=== PATIENT | male | born 1980 | race Caucasian/White ===

== ENCOUNTER 2016-09-26 01:50 | Emergency (ER) | payer MEDICAID ==
--- NOTE | 2016-09-26 02:25 | ED ---
General Adult HPI - General Chief complaint: Extremity Injury, Lower Stated complaint: Right Leg Injury Time Seen by Provider: 09/26/16 02:00 Source: patient, family, RN notes reviewed Mode of arrival: ambulatory Limitations: no limitations - History of Present Illness Initial comments: 36-year-old male presents to the emergency department with a chief complaint of right leg pain. Patient states 2 days ago he tripped over throat. Patient has also pain to the anterior right leg as well as to the right ankle. There is no head injury with this. Able to ambulate. Family about possibly an injury so they thought that they should be seen. Patient states pain is moderate worse to touch. Minimal swelling numbness to the right ankle. Patient denies any recent fever, chills, shortness of breath, chest pain, back pain, abdominal pain , nausea vomiting, numbness or tingling, dysuria or hematuria, constipation or diarrhea, headaches or visual changes, or any other current symptoms. - Related Data Home Medications Medication Instructions Recorded Confirmed Omeprazole [PriLOSEC] 20 mg PO AC-BRKFST 09/26/16 09/26/16 Allergies Allergy/AdvReac Type Severity Reaction Status Date / Time No Known Allergies Allergy Verified 09/26/16 01:58 Review of Systems ROS Statement: Those systems with pertinent positive or pertinent negative responses have been documented in the HPI. ROS Other: All systems not noted in ROS Statement are negative. Past Medical History Past Medical History: GERD/Reflux History of Any Multi-Drug Resistant Organisms: None Reported Past Surgical History: No Surgical Hx Reported Past Psychological History: No Psychological Hx Reported Smoking Status: Never smoker Past Alcohol Use History: Occasional Past Drug Use History: None Reported General Exam - General Exam Comments Initial Comments: General: The patient is awake and alert, in no distress, and does not appear acutely ill. Neck: The neck is supple, there is no tenderness. Cardiovascular: There is a regular rate and rhythm. No murmur, rub or gallop is appreciated. Respiratory: Lungs are clear to auscultation, respirations are non-labored, breath sounds are equal. No wheezes, stridor, rales, or rhonchi. Musculoskeletal: Patient tach 2+ pulses +. Range of motion of right knee and right ankle. Patient has abrasion to the anterior right tibia with pain to palpation. There is some swelling and bruising over the right medial malleolus with some tenderness as well that is mildly tender to palpation. Neurological: CN II-XII intact, There are no obvious motor or sensory deficits. Coordination appears grossly intact. Speech is normal. Skin: Skin is warm and dry and no rashes or lesions are noted. Psychiatric: Normal mood and affect. Limitations: no limitations Course Vital Signs 09/26/16 01:55 Temperature 98 F Pulse Rate 63 Respiratory 18 Rate Blood Pressure 136/85 O2 Sat by Pulse 100 Oximetry Medical Decision Making - Medical Decision Making 36-year-old male presents emergency department with a chief complaint of right lower extremity pain. At this time patient underwent x-rays. This time x-rays are reviewed and negative. This and we discussed patient with significant right ankle sprain and a right tibial contusion. This time we discussed Motrin Tylenol. We discussed return parameters follow-up and all questions. Patient family stated the Gary management plan. They will be discharged home. - Radiology Data Radiology results: report reviewed, image reviewed Disposition Clinical Impression: Right ankle sprain, Contusion of right leg, Abrasion, right lower leg, initial encounter Disposition: HOME SELF-CARE Condition: Stable Instructions: Ankle Sprain (ED), Abrasion (ED) Additional Instructions: Please use medication as discussed. Please follow up with family doctor if symptoms have not improved over the next two days. Please return to the emergency room if your symptoms increase or worsen or for any other concerns. Referrals: Nikki Cedeno MD [Primary Care Provider] - 1-2 days Time of Disposition: 02:49
--- NOTE | 2016-09-26 02:43 | XR ---
EXAM: XR Right Tibia and Fibula, 2 Views CLINICAL HISTORY: Reason: Pain TECHNIQUE: Frontal and lateral views of the right tibia and fibula. COMPARISON: No relevant prior studies available. FINDINGS: Bones/joints: Unremarkable. No acute fracture. No dislocation. Soft tissues: Unremarkable. No radiopaque foreign body. IMPRESSION: Normal right tibia and fibula x-rays.
--- NOTE | 2016-09-26 02:44 | XR ---
EXAM: XR Right Ankle Complete, 3 or More Views CLINICAL HISTORY: Reason: Pain TECHNIQUE: Frontal, lateral and oblique views of the right ankle. COMPARISON: No relevant prior studies available. FINDINGS: Bones/joints: Unremarkable. No acute fracture. No dislocation. Soft tissues: Unremarkable. IMPRESSION: Normal right ankle x-rays.
[2016-09-26 03:02] VITALS: BP 137/83; PULSE 74; RESP 16; TEMP 97
== END 2016-09-26 03:02 | disposition home or self-care (01) ==
LOC: EC 01:50
DX: S93.401A Sprain of unspecified ligament of right ankle, initial encounter (principal); S80.11XA Contusion of right lower leg, initial encounter; K21.9 Gastro-esophageal reflux disease without esophagitis; Z79.899 Other long term (current) drug therapy; W18.49XA Other slipping, tripping and stumbling without falling, initial encounter
CPT/HCPCS: 99283

== ENCOUNTER → 2018-06-01 | Outpatient (CLI) | payer BC, OTHER ==
[~2018-06-01] MED LIST: REGADENOSON 0.4 MG/5 ML SYRINGE IV ONE
--- NOTE | 2018-06-01 11:57 | P.STRESS ---
- Stress Test Note Stress Test Results/Findings: Exam Performed: NM stress lexiscan cardiolite Exam Date: 06/01/18 Reason for Exam: CHEST PAIN Height: 6 ft 1 in Weight: 90.718 kg Protocol: LEXISCAN Stage: N/A Duration of Exercise: 10 MINUTES Resting Heart Rate: 65 Resting Blood Pressure: 136/85 Maximum Achieved Heart Rate: 102 Maximum Achieved Blood Pressure: 141/72 85% PMHR: N/A 100% PMHR: N/A METS: N/A Technologist Comment: Stress Test Results/Findings: This is a 38-year-old gentleman being evaluated for symptoms of shortness of breath and chest pains. Stress data: Baseline EKG showed sinus rhythm with minor nonspecific ST-T changes. A standard dose of Lexiscan was infused. EKGs taken during and after the infusion did not reveal any changes of ischemia. Final impression: #1. Negative Lexiscan stress test #2. Report on the nuclear images to be given by the radiologist
--- NOTE | 2018-06-01 15:26 | NM ---
EXAMINATION TYPE: NM stress lexiscan cardiolite DATE OF EXAM: 06/01/2018 COMPARISON: NONE HISTORY: TECHNIQUE: After the intravenous administration of 10.0 mCi Tc 99m Sestamibi - Cardiolite resting SP ECT images acquired 45 minutes post injection. The patient received 0.4mg Lexiscan, 25.0 mCi Tc 99m Sestamibi - Stress images obtained [address] injection FINDINGS: There appears to be some very subtle diminished radiotracer accumulation along the anterior wall with in its proximal midportion on the stress images with more normal radiotracer distribution on the rest ing images. Some mild stress-induced ischemic change be considered. However, on the rotating raw data images there appears to be some artifact which may cross the anterior wall. Artifact may be present. Polar maps appear to support the suspicion. Gated wall motion is normal. The ejection fraction of 39% is low. Normal is greater than 50%. IMPRESSION: 1. Stress-induced ischemic changes suspected along the anterior wall within the anterior base extendi ng to the anterior midportion. Polar maps support the findings. Correlate with EKG changes. 2. Ejection fraction is low at 39%. A [place] level critical message alert has been initiated for Anni Banks DO via the [employer] Results System on 06/01/2018 3:24 PM. This message alert has been sent to Anni contreras DO via the preferences provided by the clinician for the receipt of Radiology Critical Findings. Message ID [id number].
--- NOTE | 2018-06-01 18:55 | ECHOF ---
Referral Reason:R07.9 Chest pain MEASUREMENTS -------- HEIGHT: 185.4 cm WEIGHT: 90.7 kg BP: 137/87 RVIDd: 2.6 cm (< 3.3) IVSd: 1.1 cm (0.6 - 1.1) LVIDd: 4.5 cm (3.9 - 5.3) LVPWd: 1.1 cm (0.6 - 1.1) IVSs: 1.5 cm LVIDs: 2.7 cm LVPWs: 1.7 cm LA Diam: 3.4 cm (2.7 - 3.8) LAESV Index (A-L): 21.45 ml/m Ao Diam: 3.5 cm (2.0 - 3.7) AV Cusp: 2.3 cm (1.5 - 2.6) LA Diam: 3.0 cm (2.7 - 3.8) MV E Mark: 0.88 m/s MV DecT: 288 ms MV A Mark: 0.55 m/s MV E/A Ratio: 1.60 RAP: 5.00 mmHg RVSP: 27.08 mmHg FINDINGS -------- Sinus rhythm. This was a technically good study. The left ventricular size is normal. There is borderline concentric left ventricular hypertrophy. Overall left ventricular systolic function is normal with, an EF between 60 - 65 %. The right ventricle is normal in size. Normal LA size by volume 22+/-6 ml/m2. The right atrium is normal in size. The aortic valve is trileaflet and appears structurally normal. The mitral valve is normal. Mild tricuspid regurgitation present. Right ventricular systolic pressure is normal at < 35 mmHg. Trace/mild (physiologic) pulmonic regurgitation. The aortic root size is normal. Normal inferior vena cava with normal inspiratory collapse consistent with estimated right atrial pre ssure of 5 mmHg. There is no pericardial effusion. CONCLUSIONS -------- 1. Sinus rhythm. 2. This was a technically good study. 3. The left ventricular size is normal. 4. There is borderline concentric left ventricular hypertrophy. 5. Overall left ventricular systolic function is normal with, an EF between 60 - 65 %. 6. The right ventricle is normal in size. 7. Normal LA size by volume 22+/-6 ml/m2. 8. The right atrium is normal in size. 9. The aortic valve is trileaflet and appears structurally normal. 10. The mitral valve is normal. 11. Mild tricuspid regurgitation present. 12. Right ventricular systolic pressure is normal at < 35 mmHg. 13. Trace/mild (physiologic) pulmonic regurgitation. 14. The aortic root size is normal. 15. Normal inferior vena cava with normal inspiratory collapse consistent with estimated right atrial pressure of 5 mmHg. 16. There is no pericardial effusion. CHAR FILTER OPERATOR HELPER: TANA Crowe
== END | disposition home or self-care (01) ==
LOC: RADNMMAIN 07:59
PROVIDERS: ATTEND Family Medicine
DX: I07.1 Rheumatic tricuspid insufficiency (principal)
CPT/HCPCS: 93017; 93306; 78452; A9500; J2785

== ENCOUNTER 2018-07-27 21:34 | Emergency (ER) | payer BC, OTHER ==
[2018-07-27] MEDS ORDERED: IBUPROFEN 600 MG TAB PO STA (22:04)
[2018-07-27] MEDS ORDERED: ACETAMINOPHEN TAB 500 MG TAB PO STA (22:04)
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
--- NOTE | 2018-07-27 22:49 | XR ---
EXAM: XR Right Hand Complete, 3 or More Views CLINICAL HISTORY: ITS.REASON XR Reason: Pain TECHNIQUE: Frontal, lateral and oblique views of the right hand. COMPARISON: None. FINDINGS: Bones/joints: Unremarkable. No acute fracture. No dislocation. Soft tissues: Unremarkable. No radiopaque foreign body. IMPRESSION: No acute osseous abnormality.
--- NOTE | 2018-07-27 22:50 | XR ---
EXAM: XR Right Humerus, 2 or More Views CLINICAL HISTORY: ITS.REASON XR Reason: Pain TECHNIQUE: Frontal and lateral views of the right humerus. COMPARISON: None. FINDINGS: Bones/joints: Unremarkable. No acute fracture. No dislocation. Soft tissues: Unremarkable. IMPRESSION: No acute osseous abnormality.
[2018-07-27 23:08] LABS: Appearance,Urine Clear (Clear); Bilirubin,Urine Negative (Negative); Blood,Urine Negative (Negative); Color,Urine Yellow; Glucose,Urine (UA) Negative (Negative); Ketones,Urine Negative (Negative); Leukocyte Esterase,Urine Negative (Negative); Nitrite,Urine Negative (Negative); PH, Urine 5.5 (5.0-8.0); Protein,Urine Trace (Negative); Specific Gravity,Urine 1.019 (1.001-1.035); Urobilinogen,Urine <2.0 mg/dL (<2.0)
[2018-07-27 23:47] VITALS: BP 128/86; PULSE 89; RESP 16; TEMP 98.4
== END 2018-07-27 23:46 | disposition home or self-care (01) ==
LOC: EC 21:34
DX: S40.021A Contusion of right upper arm, initial encounter (principal); S30.811A Abrasion of abdominal wall, initial encounter; S80.812A Abrasion, left lower leg, initial encounter; K21.9 Gastro-esophageal reflux disease without esophagitis; Z79.899 Other long term (current) drug therapy; V19.9XXA Pedal cyclist (driver) (passenger) injured in unspecified traffic accident, initial encounter
CPT/HCPCS: 81003; 99283

== ENCOUNTER → 2023-07-14 | Outpatient (CLI) | payer BC ==
--- NOTE | 2023-07-14 17:21 | CA ---
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 18 - 58 / 22 - 52 cm??? LA Volume Index 20.8 cm???/m??? 16 - 28 cm???/m??? M-MODE Aortic Root Diameter MM 2.6 cm LA Systolic Diameter MM 3.1 cm LA Ao Ratio MM 1.2 AV Cusp Separation MM 2.3 cm DOPPLER AV Peak Velocity 132.8 cm/s AV Peak Gradient 7.1 mmHg AV Mean Velocity 94.1 cm/s AV Mean Gradient 4.1 mmHg AV Velocity Time Integral 26.1 cm LVOT Peak Velocity 100.6 cm/s LVOT Peak Gradient 4.0 mmHg LVOT Velocity Time Integral 20.4 cm MV Area PHT 4.2 cm??? Mitral E Point Velocity 74.9 cm/s Mitral A Point Velocity 67.3 cm/s Mitral E to A Ratio 1.1 MV Deceleration Time 180.6 ms MV E' Velocity 7.5 cm/s Mitral E to MV E' Ratio 10.0 TR Peak Velocity 223.7 cm/s TR Peak Gradient 20.0 mmHg Right Ventricular Systolic Press 24.4 mmHg FINDINGS Left Ventricle Mildly increased left ventricular wall thickness. Left ventricular cavity size normal. Normal left ventricular systolic function with no obvious regional wall motion abnormalities. Left ventricular ejection fraction is estimated at 55-60 %. Normal left ventricular diastolic filling pattern. Right Ventricle Normal right ventricular size and function. Right ventricular systolic pressure within normal limits. Right Atrium Normal right atrial size. Left Atrium Normal left atrial size. Mitral Valve Structurally normal mitral valve. No mitral stenosis, regurgitation or prolapse. Aortic Valve Trileaflet aortic valve. No aortic valve stenosis or regurgitation. Tricuspid Valve Structurally normal tricuspid valve. Mild tricuspid regurgitation. Pulmonic Valve Structurally normal pulmonic valve. Trace pulmonic regurgitation. Pericardium No pericardial effusion. Aorta Normal size aortic root and proximal ascending aorta. CONCLUSIONS Normal LV function Previewed by: Dr. Roderick Vazquez MD (Electronically Signed) Final Date: 14 July 2023 17:20
== END | disposition home or self-care (01) ==
LOC: RADECHMAIN 11:16
PROVIDERS: ATTEND Family Medicine
DX: Q23.1 Congenital insufficiency of aortic valve (principal)
CPT/HCPCS: 93306

== ENCOUNTER → 2023-07-28 | Outpatient (CLI) | payer BC ==
[2023-07-28 15:20] LABS: ALT 51 U/L (10-49); AST 30 U/L (14-35); Chol/HDL Ratio 4.99 Ratio; LDL Cholesterol,Calculated 125.5 mg/dL (0.0-131.0)
== END | disposition home or self-care (01) ==
LOC: LABWHC1 10:33
PROVIDERS: ATTEND Internal Medicine
DX: E78.2 Mixed hyperlipidemia (principal)
CPT/HCPCS: 36415; 80061; 84450; 84460